=== PATIENT | female | born 1940 | race Caucasian/White ===

== ENCOUNTER 2020-08-14 14:51 | Inpatient (IN) | payer MEDICARE ==
[2020-08-14] MEDS ORDERED: Cefepime 2 GM VIAL ONE (15:15)
[2020-08-14] MEDS ORDERED: Acetaminophen 500 MG TAB ONE (15:15)
[2020-08-14 15:32] LABS: #Basophils 0.1 10x3/uL (0.0-0.2); #Monocytes 0.5 10x3/uL (0.0-1.1); %Basophils 0.4 % (0.0-2.0); %Eosinophils 0.1 % (0.0-6.0); %Lymphocytes 2.9 % (18.0-47.0); %Monocytes 3.6 % (0.0-10.0); %Neutrophils 92.6 % (40.0-75.0); Hemoglobin 13.9 g/dL (12.0-15.5); Mean Corpuscular HGB CONC 32.6 g/dL (32.0-36.0); Mean Corpuscular Hemoglobin 30.7 pg (27.0-33.0); Mean Platelet Volume 9.6 fl (7.4-10.4); Platelet Count 211 10x3/uL (150-450); RBC Distribution Width 13.3 % (11.5-14.5); Red Blood Cell (RBC) Count 4.53 10x6/uL (3.90-5.03)
[2020-08-14 15:33] LABS: Bilirubin Neg (Negative); Blood, Urine 150 (Negative); Clarity Clear (Clear); Glucose, Urine (Dipstick) Normal (Negative); Ketone, Urine 5 mg/dL (Negative); Leukocyte Negative (Negative); Nitrite Negative (Negative); Protein, Urine (Dipstick) 15 mg/dl (Neg-Trace); Specific Gravity, Urine 1.005 (1.002-1.036); Urobilinogen Normal mg/dL (Less than 2)
[2020-08-14 15:39] LABS: ALT (SGPT) 12 U/L (8-55); AST (SGOT) 15 U/L (5-34); Albumin 3.9 g/dL (3.4-4.8); Alkaline Phosphatase 124 U/L (40-110); Anion Gap 16 mmol/L (10-20); BUN (Urea Nitrogen) 12 mg/dL (9.8-20.1); Bilirubin, Total 0.6 mg/dL (0.2-1.2); Calc. Creatinine Clearance 0 mL/min (70-130); Calcium 9.3 mg/dL (7.8-10.44); Carbon Dioxide 23 mmol/L (23-31); Chloride 100 mmol/L (98-107); Glucose 161 mg/dL (83-110); Potassium 4.3 mmol/L (3.5-5.1); Protein, Total 7.9 g/dL (5.8-8.1); Sodium 135 mmol/L (136-145)
[2020-08-14 15:49] LABS: Bacteria/HPF 3+ HPF (None Seen); Squamous Epithelial 0-3 HPF (0-3)
[2020-08-14] MEDS ORDERED: Acetaminophen 325 MG TAB PO PRN (16:38)
[2020-08-14] MEDS ORDERED: HYDROcodone/Acetaminophen 5/325 mg Tablet PO PRN (16:38)
[2020-08-14] MEDS ORDERED: Bisacodyl 5 MG TAB PO PRN (16:38)
[2020-08-14] MEDS ORDERED: Ondansetron PF 4 MG/2 ML Vial IVP PRN (16:38)
[2020-08-14] MEDS ORDERED: Vancomycin HCl 500 MG VIAL ONE (16:45)
[2020-08-14 18:14] VITALS: BMI 25.9
[2020-08-15 06:03] LABS: #Monocytes 0.5 10x3/uL (0.0-1.1); #Neutrophils 9.9 10x3/uL (1.5-8.4); %Basophils 0.3 % (0.0-2.0); %Eosinophils 0.2 % (0.0-6.0); %Lymphocytes 12.9 % (18.0-47.0); %Monocytes 4.4 % (0.0-10.0); %Neutrophils 81.9 % (40.0-75.0); Hemoglobin 11.5 g/dL (12.0-15.5); Mean Corpuscular HGB CONC 33.3 g/dL (32.0-36.0); Mean Platelet Volume 9.6 fl (7.4-10.4); Platelet Count 198 10x3/uL (150-450); RBC Distribution Width 13.4 % (11.5-14.5); Red Blood Cell (RBC) Count 3.71 10x6/uL (3.90-5.03); White Blood Cell (WBC) Count 12.1 10x3/uL (3.5-10.5)
[2020-08-15 06:09] LABS: Anion Gap 13 mmol/L (10-20); BUN (Urea Nitrogen) 10 mg/dL (9.8-20.1); Calc. Creatinine Clearance 64 mL/min (70-130); Calcium 8.5 mg/dL (7.8-10.44); Carbon Dioxide 23 mmol/L (23-31); Cardiac Risk 3.2 (Less than 4.5); Chloride 103 mmol/L (98-107); Cholesterol 189 mg/dl (< 200 Desired); Glucose 133 mg/dL (83-110); HDL Cholesterol 59 mg/dL (>60 Neg Risk); LDL Cholesterol, Calculated 114 mg/dL; Potassium 3.6 mmol/L (3.5-5.1); Sodium 135 mmol/L (136-145); Triglycerides 80 mg/dL (Less than 150)
[2020-08-15] MEDS: Enoxaparin Sodium 40 MG/0.4 ML SYRINGE SC SCH (10:17)
[2020-08-15] MEDS: cefTRIAXone\\ROCEPHIN 2 GM in Sodium Chloride 0.9% 100 ML IVPB SCH (10:18)
[2020-08-15] MEDS ORDERED: Dextrose 5% in Water 1,000 ML IV PRN (12:30)
[2020-08-15] MEDS ORDERED: Dextrose 50% Abboject 50 ML SYRINGE IVP PRN (12:30)
[2020-08-15] MEDS: HumaLOG 300 UNITS/3 ML VIAL SC PRN (12:55)
[2020-08-15 13:56] LABS: SARS-CoV-2 PCR by NAA Not Detected (NotDetected)
[2020-08-16 08:00] VITALS: TEMP 98.2
[2020-08-16] MEDS: Enoxaparin Sodium 40 MG/0.4 ML SYRINGE SC SCH (10:07)
[2020-08-16] MEDS: cefTRIAXone\\ROCEPHIN 2 GM in Sodium Chloride 0.9% 100 ML IVPB SCH (10:08)
[2020-08-16] MEDS: HumaLOG 300 UNITS/3 ML VIAL SC PRN (12:26)
[2020-08-16 15:49] VITALS: BP 168/83
== END 2020-08-16 17:25 | disposition home health service (06) | DRG 689 ==
LOC: CSHERS 14:51 → CSHTELE 17:53
PROVIDERS: ADMIT Hospitalist; ATTEND Hospitalist
DX: N39.0 Urinary tract infection, site not specified (principal); G93.41 Metabolic encephalopathy; B96.20 Unspecified Escherichia coli [E. coli] as the cause of diseases classified elsewhere; F01.50 Vascular dementia, unspecified severity, without behavioral disturbance, psychotic disturbance, mood disturbance, and anxiety; E11.65 Type 2 diabetes mellitus with hyperglycemia; Z88.2 Allergy status to sulfonamides; Z87.891 Personal history of nicotine dependence; I10 Essential (primary) hypertension; Z20.822 Contact with and (suspected) exposure to COVID-19; Z86.73 Personal history of transient ischemic attack (TIA), and cerebral infarction without residual deficits
CPT/HCPCS: 0439T; 36415; 36416; 51701; 70450; 70551; 71045; 72125; 80048; 80053; 80061; 81003; 81015; 83036; 83605; 84484; 85025; 87040; 87077; 87086; 87186; 87635; 93005; 93306; 93880; 96365; 96367; J0692; J0696; J1650; J1815; J3370; J3490; U0003; U0005

== ENCOUNTER 2022-01-10 13:03 | Emergency (ER) | payer MEDICARE, OTHER ==
[2022-01-10 14:18] LABS: #Basophils 0.1 10x3/uL (0.0-0.2); #Eosinphils 0.1 10x3/uL (0.0-0.5); #Monocytes 0.6 10x3/uL (0.0-1.1); #Neutrophils 8.4 10x3/uL (1.5-8.4); %Basophils 0.4 % (0.0-2.0); %Eosinophils 1.3 % (0.0-6.0); %Lymphocytes 16.8 % (18.0-47.0); %Monocytes 5.5 % (0.0-10.0); %Neutrophils 75.6 % (40.0-75.0); Hemoglobin 13.8 g/dL (12.0-15.5); Mean Corpuscular HGB CONC 32.4 g/dL (32.0-36.0); Mean Corpuscular Hemoglobin 31.1 pg (27.0-33.0); Mean Corpuscular Volume 95.9 fl (81.6-98.3); Mean Platelet Volume 9.6 fl (7.4-10.4); Platelet Count 276 10x3/uL (150-450); RBC Distribution Width 12.9 % (11.5-14.5); Red Blood Cell (RBC) Count 4.44 10x6/uL (3.90-5.03); White Blood Cell (WBC) Count 11.2 10x3/uL (3.5-10.5)
[2022-01-10 14:40] LABS: ALT (SGPT) 10 U/L (8-55); AST (SGOT) 19 U/L (5-34); Alkaline Phosphatase 87 U/L (40-110); Anion Gap 18 mmol/L (10-20); BUN (Urea Nitrogen) 14 mg/dL (9.8-20.1); Bilirubin, Total 0.5 mg/dL (0.2-1.2); Calc. Creatinine Clearance 0 mL/min (70-130); Calcium 9.7 mg/dL (7.8-10.44); Carbon Dioxide 22 mmol/L (23-31); Chloride 104 mmol/L (98-107); Estimated GFR 40; Globulin 3.4 g/dL (2.4-3.5); Glucose 206 mg/dL (83-110); Potassium 4.5 mmol/L (3.5-5.1); Protein, Total 7.4 g/dL (5.8-8.1); Sodium 139 mmol/L (136-145)
== END 2022-01-10 16:42 | disposition home or self-care (01) ==
LOC: CSHERS 13:03
DX: E11.65 Type 2 diabetes mellitus with hyperglycemia (principal); R55 Syncope and collapse; I10 Essential (primary) hypertension
CPT/HCPCS: 36416; 71045; 80053; 84484; 85025; 93005; 96360

== ENCOUNTER 2023-10-04 05:34 | Day surgery (SDC) | payer OTHER ==
[2023-10-01 12:42] VITALS: BMI 22.1
[2023-10-04] MEDS ORDERED: EPINEPHrine 1 MG/ML VIAL ONE (06:14)
[2023-10-04] MEDS ORDERED: CEFAZOLIN 2 GM VIAL ONE (06:14)
[2023-10-04] MEDS ORDERED: Bupivacaine PF 0.5% 30 ML VIAL ONE (06:14)
[2023-10-04] MEDS ORDERED: Lidocaine 2% PF 5 ML VIAL ONE (06:46)
[2023-10-04] MEDS ORDERED: Dexamethasone 4 mg/ml Vial ONE (06:46)
[2023-10-04] MEDS ORDERED: fentaNYL 50 mcg/mL 1 mL Vial ONE (06:46)
[2023-10-04] MEDS ORDERED: PROPOFOL 20 ML ONE (06:46)
[2023-10-04] MEDS ORDERED: Ondansetron PF 4 MG/2 ML Vial ONE (06:46)
[2023-10-04] MEDS ORDERED: ePHEDrine Sulfate 50 MG/10 ML VIAL ONE (07:18)
[2023-10-04] MEDS ORDERED: HYDROcodone/Acetaminophen 5/325 mg Tablet PO PRN (07:53)
== END 2023-10-04 10:30 | disposition home or self-care (01) ==
LOC: CSHSDC 05:34
PROVIDERS: ATTEND Surgery
PROC: 0JH60WZ Insertion of Totally Implantable Vascular Access Device into Chest Subcutaneous Tissue and Fascia, Open Approach (ICD-10-PCS; principal; 2023-10-04)
DX: C25.2 Malignant neoplasm of tail of pancreas (principal); E11.9 Type 2 diabetes mellitus without complications; E78.00 Pure hypercholesterolemia, unspecified; F41.9 Anxiety disorder, unspecified; M81.0 Age-related osteoporosis without current pathological fracture; Z79.899 Other long term (current) drug therapy; Z90.710 Acquired absence of both cervix and uterus; Z98.890 Other specified postprocedural states
CPT/HCPCS: 36561; 71045; C1788; J0171; J0665; J1100; J1642; J2001; J2405; J2704; J3010